=== PATIENT | female | born 1970 | race Caucasian/White ===

== ENCOUNTER 2018-07-25 15:30 | Emergency (ER) | payer OTHER ==
[~2018-07-25] VITALS: Ht 175.3 cm; Wt 95.5 kg
[~2018-07-25 15:30] MED LIST: AMBIEN10 MG PO; FELDENE20 MG PO; NEURONTIN600 MG PO; PAXIL40 MG PO; PROTONIX40 MG PO; SYNTHROID100 MCG PO; TOPAMAX25 MG PO; ULTRAM50 MG PO
[2018-07-25 15:32] VITALS: Ht 175.3 cm; Wt 95.5 kg
[2018-07-25] MEDS ORDERED: ROBAXIN500 MG PO (18:51)
[2018-07-25 19:09] VITALS: BP 101/71
== END 2018-07-25 19:06 | disposition home or self-care (01) ==
LOC: D.ER 15:30
DX: M54.12 Radiculopathy, cervical region (principal)

== ENCOUNTER 2021-03-28 20:01 | Inpatient (IN) | payer BC ==
[~2021-03-28] VITALS: Ht 175.3 cm; Wt 100.0 kg
[~2021-03-28 20:01] MED LIST changes: +ROBAXIN500 MG PO; -TOPAMAX25 MG PO; +TOPAMAX50 MG PO
[2021-03-28 21:28] LABS: BASOPHILS 0.9 % (0-2); EOSINOPHILS 3.7 % (0-7); HEMATOCRIT 43.1 % (36.0-48.0); HEMOGLOBIN 14.2 g/dL (12-16); LYMPHOCYTES 12.2 % (15-50); MCV 87.8 fL (80.0-100.0); MEAN PLATELET VOLUME 7.5 fL (7.4-10.4); MONOCYTES 6.6 % (2-11); NEUTROPHILS 76.6 % (40-80); PLATELET COUNT 201 10x3/uL (130-400)
[2021-03-28 21:48] LABS: CALC OSMOLALITY 288 mosm/kg (275-300); CALCIUM 9.4 mg/dL (8.5-10.1); CHLORIDE - SERUM 107 mmol/L (98-107); CREATININE - SERUM 1.1 mg/dL (0.6-1.3); GLUCOSE 98 mg/dL (74-106); POTASSIUM - SERUM 3.5 mmol/L (3.5-5.1); SODIUM 144 mmol/L (136-145); UREA NITROGEN 17 mg/dL (7-18); eGFR NON AFRICAN AMERICAN 55 mL/min (90-120)
[2021-03-28 21:58] LABS: ALBUMIN 3.6 g/dL (3.4-5.0); ALKALINE PHOSPHATASE 93 U/L (30-120); ALT (SGPT) 40 U/L (10-68); BILIRUBIN - TOTAL 0.26 mg/dL (0.2-1.3); PRO BNP 15 pg/mL (0-125); PROTEIN - SERUM 7.4 g/dL (6.4-8.2); THYROID STIMULATING HORMONE 3.57 uIU/mL (0.36-3.74)
[2021-03-28 22:02] LABS: TROPONIN-I < 0.017 ng/mL (0.000-0.060)
--- NOTE | 2021-03-28 23:37 | NUR ---
pt taken to CT via stretcher
--- NOTE | 2021-03-28 23:54 | NUR ---
pt back in room from CT
[2021-03-29] VITALS (9 sets, daily range): BP systolic 95–132; BP diastolic 71–87
[2021-03-29 02:07] LABS: INFLUENZA TYPE A NEGATIVE (NEGATIVE); INFLUENZA TYPE B NEGATIVE (NEGATIVE); SARS-CoV-2 ANTIGEN NEGATIVE- SARS-COV-2 (NEGATIVE)
[2021-03-29 03:39] LABS: BILIRUBIN NEGATIVE (NEGATIVE); KETONE NEGATIVE mg/dL (< 1+); NITRITE NEGATIVE (NEGATIVE); SQUAMOUS EPITHELIAL 1 HPF (0-4); UROBILINOGEN NORMAL mg/dL (< 2); WHITE CELLS - URINE 2 HPF (0-4)
[2021-03-29 06:51] LABS: BASOPHILS 0.2 % (0-2); EOSINOPHILS 0.1 % (0-7); HEMATOCRIT 39.5 % (36.0-48.0); HEMOGLOBIN 13.2 g/dL (12-16); LYMPHOCYTES 3.8 % (15-50); MCH 29.1 pg (26.0-34.0); MCHC 33.5 g/dL (31.0-37.0); MCV 86.7 fL (80.0-100.0); MEAN PLATELET VOLUME 7.8 fL (7.4-10.4); NEUTROPHILS 93.9 % (40-80); PLATELET COUNT 186 10x3/uL (130-400); RBC 4.56 10x6/uL (4.00-5.40)
[2021-03-29 07:09] LABS: ALBUMIN 3.5 g/dL (3.4-5.0); ANION GAP 15.2 mmol/L (8-16); BILIRUBIN - TOTAL 0.26 mg/dL (0.2-1.3); C-REACTIVE PROTEIN 1.5 mg/dL (0.0-0.9); CALCIUM 8.8 mg/dL (8.5-10.1); CARBON DIOXIDE 24.1 mmol/L (21.0-32.0); CREATININE - SERUM 1.1 mg/dL (0.6-1.3); PHOSPHOROUS 2.7 mg/dL (2.5-4.9); PROTEIN - SERUM 7.1 g/dL (6.4-8.2)
[2021-03-29 07:10] LABS: POTASSIUM - SERUM 4.3 mmol/L (3.5-5.1)
[2021-03-29 07:20] LABS: WBC 9.1 10x3/uL (4.8-10.8)
--- NOTE | 2021-03-29 07:27 | NUR ---
CALLED REPORT TO HALIE SANDOVAL ON MED II.
--- NOTE | 2021-03-29 07:39 | NUR ---
PATIENT ARRIVED TO UNIT AT THIS TIME VIA WHEELCHAIR FROM THE ED AND ADMITTED TO ROOM 2106 COVID PUI.
[2021-03-29] MEDS ORDERED: HYDROXYCHLOROQ200 MG PO (07:56)
--- NOTE | 2021-03-29 09:00 | NUR ---
SCDs APPLIED TO BILATERAL LOWER EXTREMITIES AT THIS TIME.
[2021-03-29 10:13] LABS: ERYTHROCYTE SEDIMENTATION RATE 12 mm/hr (0-30)
--- NOTE | 2021-03-29 23:20 | NUR ---
REPORT RECEIVED. PT A&O, UP IN BED WATCHING TV. NO S/S OF DISTRESS OBSERVED. RR EVEN & UNLABORED ON RA/2L PRN. IV TO L HAND W/ ATBS INFUSING. ORDERED TELE AT THIST TIME. BED LOCKED AND LOWERED, CL IN REACH. WILL CONT POC.
[2021-03-30 02:21] VITALS: BP 129/71
[2021-03-30 02:42] VITALS: BP 119/74; Ht 175.3 cm; Wt 100.0 kg
--- NOTE | 2021-03-30 04:50 | NUR ---
PTS IV INFILTRATED. RESITED TO 20G TO L HAND X 2 STICKS. PT TOLERATED WELL. NO S/S OF DISTRESS OBSERVED. WILL CONT POC.
[2021-03-30 05:40] LABS: BASOPHILS 0.3 % (0-2); EOSINOPHILS 0.1 % (0-7); HEMATOCRIT 38.1 % (36.0-48.0); HEMOGLOBIN 12.6 g/dL (12-16); LYMPHOCYTES 13.9 % (15-50); MCH 28.9 pg (26.0-34.0); MCHC 33.1 g/dL (31.0-37.0); MCV 87.4 fL (80.0-100.0); MEAN PLATELET VOLUME 7.7 fL (7.4-10.4); MONOCYTES 4.3 % (2-11); NEUTROPHILS 81.4 % (40-80); PLATELET COUNT 172 10x3/uL (130-400); RBC 4.37 10x6/uL (4.00-5.40)
[2021-03-30 05:57] LABS: WBC 5.5 10x3/uL (4.8-10.8)
[2021-03-30 06:06] VITALS: BP 109/60
[2021-03-30 06:20] LABS: ALBUMIN 3.2 g/dL (3.4-5.0); ANION GAP 13.8 mmol/L (8-16); BILIRUBIN - TOTAL 0.18 mg/dL (0.2-1.3); CALCIUM 8.4 mg/dL (8.5-10.1); CARBON DIOXIDE 24.6 mmol/L (21.0-32.0); MAGNESIUM - SERUM 2.1 mg/dL (1.8-2.4); POTASSIUM - SERUM 4.4 mmol/L (3.5-5.1); PROTEIN - SERUM 6.7 g/dL (6.4-8.2)
--- NOTE | 2021-03-30 07:00 | NUR ---
Lying in bed, awake/alert/oriented, T/R self ad maia, cont of B/B with BRPs per self ad maia, denies pain/other discomfort at this time, call light/phone/water within reach.
[2021-03-30 09:00] VITALS: BP 115/75
[2021-03-30] MEDS ORDERED: TESSALON PERLE100 MG PO (11:39)
[2021-03-30] MEDS ORDERED: ZPAK PO (11:40)
[2021-03-30] MEDS ORDERED: MUCINEX600 MG PO (11:40)
[2021-03-30] MEDS ORDERED: DECADRON4 MG PO (11:41)
[2021-03-30] MEDS ORDERED: PROAIR HFA8.5 G1 INH (11:41)
--- NOTE | 2021-03-30 14:50 | NUR ---
Provided written/verbal discharge instructions/education to which pt stated understanding, discontinued IV access/cardiac telemetry monitoring, no s/s of acute distress observed.
--- NOTE | 2021-03-30 15:30 | NUR ---
DC'd home to self care in stable condition via w/c accompanied by hospital staff and a family member, no s/s of acute distress observed.
[2021-03-30 16:00] VITALS: BP 118/72
== END 2021-03-30 15:30 | disposition home or self-care (01) | DRG 204 ==
LOC: D.ER 20:01 → OBSVTIME 23:18 → D.EDHOLD 23:18 → D.M2 23:18
PROVIDERS: Family Medicine; ADMIT Emergency Medicine; ATTEND Emergency Medicine
DX: R06.00 Dyspnea, unspecified (principal); Z20.822 Contact with and (suspected) exposure to COVID-19; R05 Cough; I10 Essential (primary) hypertension; E03.9 Hypothyroidism, unspecified; G47.33 Obstructive sleep apnea (adult) (pediatric); K21.9 Gastro-esophageal reflux disease without esophagitis